=== PATIENT | female | born 1955 | race Caucasian/White ===

== ENCOUNTER 2018-04-19 09:43 | Observation (INO) ==
--- NOTE | 2018-04-19 09:45 | Emergency Department Note ---
Disposition Clinical Impression: Pneumonia Qualifiers: Pneumonia type: due to unspecified organism Laterality: right Lung location: middle lobe of lung Qualified Code(s): J18.1 - Lobar pneumonia, unspecified organism Disposition: Admitted As Inpatient Condition: Good Instructions: Upper Respiratory Infection (ED), Community-acquired Pneumonia (ED), Cold Symptoms (ED) Prescriptions: Albuterol Sulfate [Proventil Hfa] 6.7 gm IH Q4-6H PRN 7 Days #1 hfa.aer.ad PRN Reason: Shortness of breath Levofloxacin [Levaquin] 750 mg PO DAILY #7 tablet predniSONE [PredniSONE] 20 mg PO DAILY #15 tablet Promethazine/Dextromethorphan [Promethazine-Dm Syrup] 5 ml PO Q4-6H PRN #120 syrup PRN Reason: Cough Referrals: NONE,PCP [Primary Care Provider] - Time of Disposition: 11:21 General Adult HPI - General Stated complaint: SOB Sinus coughing Time Seen by Provider: 04/19/18 09:44 Source: patient Mode of arrival: private vehicle Limitations: no limitations Nursing Notes Reviewed: Yes Vital Signs Reviewed: Yes - History of Present Illness HPI Narrative: 62-year-old white female presents emergency department via private vehicle complaining of cough and cold symptoms for the last 3 days. She says that she is had sinus congestion with a headache. She denies any sore throat or earache. She has not had generalized body aches or fever. She has had a somewhat productive cough. She is been taking Mucinex and Robitussin with little to no relief. She says that she gets this "every spring." She says that the shortness of breath concerned her this morning. She feels like she just cannot take a deep breath. - Related Data Previous Rx's Medication Instructions Recorded Guaifenesin [Guaifenesin ER] 600 mg PO BID PRN #30 tab.er.12h 05/10/17 Albuterol Sulfate [Proventil Hfa] 6.7 gm IH Q4-6H PRN 7 Days #1 04/19/18 hfa.aer.ad Levofloxacin [Levaquin] 750 mg PO DAILY #7 tablet 04/19/18 Promethazine/Dextromethorphan 5 ml PO Q4-6H PRN #120 syrup 04/19/18 [Promethazine-Dm Syrup] predniSONE [PredniSONE] 20 mg PO DAILY #15 tablet 04/19/18 Allergies Allergy/AdvReac Type Severity Reaction Status Date / Time acetaminophen [From Percocet] Allergy Vomiting Verified 05/09/17 16:06 oxycodone [From Percocet] Allergy Vomiting Verified 05/09/17 16:06 All systems ED: reviewed and negative except as stated. Constitutional: Reports: as per HPI. Denies: fever, chills, weakness, weight change Eyes: Denies: eye pain, eye discharge, vision change ENT ED: Reports: as per HPI. Denies: ear pain, throat pain, dental pain, hearing loss, epistaxis, congestion, dysphagia Cardiovascular: Denies: chest pain, palpitations, dyspnea on exertion, edema, syncope Respiratory: Reports: as per HPI, cough, dyspnea, sputum production Gastrointestinal: Denies: abdominal pain, nausea, vomiting, diarrhea, constipation, hematemesis, melena, hematochezia Genitourinary: Denies: dysuria, frequency, hematuria, discharge Musculoskeletal: Denies: back pain, neck pain, arthralgia, myalgia Integumentary: Denies: rash, abrasion, lesions Neurological: Denies: headache, weakness, numbness, paresthesias, confusion, abnormal gait, vertigo Psychiatric: Denies: anxiety, depression, suicidal thoughts, homicidal thoughts, auditory hallucinations, visual hallucinations Endocrine: Denies: fatigue Hematological/Lymphatic: Denies: easy bleeding, easy bruising Allergic/Immunologic: Denies: facial swelling, urticaria Past Medical History - Past Medical History Medical history: Reports: no medical history Surgical history: Reports: cholecystectomy Psychiatric history: Reports: no psych history - Social History Smoking Status: Never smoker Smokeless Tobacco Status: No Alcohol use: Reports: none Drug use: Reports: none Physical Exam - General Limitations: no limitations General appearance: alert, in no apparent distress - Head Head exam: atraumatic, normocephalic, normal inspection - Eye Eye exam: Present: normal appearance, PERRL, EOMI - ENT ENT exam: normal exam, normal oropharynx, mucous membranes moist - Neck Neck exam: Present: normal inspection, full ROM, trachea midline. Absent: tenderness, meningismus - Chest Chest inspection: Present: normal inspection, symmetric chest wall rise - Respiratory Respiratory exam: Present: normal lung sounds bilaterally, wheezes. Absent: respiratory distress - Cardiovascular Cardiovascular exam: Present: regular rate, normal rhythm, normal heart sounds - Abdominal Exam Abdominal exam: Present: soft, Non-Tender. Absent: tenderness, distention, guarding, rebound, rigidity, organomegaly, mass - Extremities Exam Extremities exam: Present: normal inspection, full ROM. Absent: tenderness, pedal edema - Back Exam Back exam: Present: normal inspection, full ROM. Absent: tenderness - Neurological Exam Neurological exam: Present: alert, oriented X3, CN II-XII intact. Absent: motor sensory deficit - Psychiatric Psychiatric exam: Present: normal affect, normal mood - Skin Skin exam: Present: warm, dry, intact, normal color Course Course Narrative: The patient remained stable throughout her emergency department stay. She had some improvements in her symptoms following her medications. 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 She is encouraged to rest and to avoid work for se ver days. She expresses understanding and will receive IV antibiotics prior to her discharge. She is encouraged to return for any change or concern. Shortly after playing her discharge she reconsiders and will be admitted to the hospital for further care. Spoke to Dr. Dubose at 11:15 AM to arrange for admission. Vital Signs Temperature 99.4 F 04/19/18 09:53 Pulse Rate 108 04/19/18 09:53 Respiratory Rate 22 04/19/18 09:53 Blood Pressure 141/84 04/19/18 09:53 O2 Sat by Pulse Oximetry 94 04/19/18 09:53 Temperature 99.4 F 04/19/18 09:53 Pulse Rate 108 04/19/18 09:53 Respiratory Rate 18 04/19/18 10:16 Blood Pressure 141/84 04/19/18 09:53 O2 Sat by Pulse Oximetry 99 04/19/18 10:16 Oxygen Delivery Oxygen Delivery Room Air Medical Decision Making - Lab Data Lab results reviewed: Yes I reviewed the patient's lab results. Result diagrams: 04/19/18 10:38 04/19/18 10:38 Lab Results 04/19/18 04/19/18 04/19/18 Range/Units 10:38 10:38 10:38 WBC 8.2 (4.3-11.1) K/mcL RBC 4.90 (3.82-4.97) M/mcL Hgb 14.2 (11.5-15.4) g/dL Hct 43.1 (35.3-44.9) % MCV 88.0 (83.0-100.0) fL MCH 29.0 (28.0-33.3) pg MCHC 32.9 (31.6-35.5) g/dL RDW 13.2 (11.5-14.5) % Plt Count 259 (140-400) K/mcL MPV 9.9 (9.4-12.4) fL Immature Gran % 0.6 (0-4) % Seg Neutrophils % 61.7 % Lymphocytes % 24.2 % Monocytes % 13.3 % Eosinophils % 0.0 % Basophils % 0.2 % Neutrophils # 5.1 (1.6-8.9) K/mcL Lymphocytes # 2.0 (0.6-4.6) K/mcL Monocytes # 1.1 (0.0-1.3) K/mcL Eosinophils # 0.0 (0.0-0.6) K/mcL Basophils # 0.0 (0.0-0.2) K/mcL Sodium 138 (136-145) mEq/L Potassium 3.4 L (3.5-5.1) mEq/L Chloride 103 (98-107) mEq/L Carbon Dioxide 22 L (23-29) mEq/L BUN 19 (8-23) mg/dL Creatinine 0.72 (0.60-1.20) mg/dL Est GFR ( Amer) > 60 (> 60) Est GFR (Non-Af Amer) > 60 (> 60) BUN/Creatinine Ratio 26 (6-26) Glucose 126 H (70-105) mg/dL Calculated Osmolality 290 (280-300) Lactic Acid 0.8 (0.5-2.2) mmol/L Calcium 9.3 (8.6-10.3) mg/dL Total Bilirubin 0.5 (0.3-1.0) mg/dL AST 37 (13-39) Units/L ALT 54 H (7-52) Units/L Alkaline Phosphatase 92 (34-104) Units/L Serum Total Protein 8.1 (6.4-8.9) g/dL Albumin 4.4 (3.5-5.7) g/dL Globulin 3.7 H (2.4-3.5) g/dL Albumin/Globulin Ratio 1.2 (1.1-2.2) Influenza A and B are negative - Radiology Data Radiology results reviewed: Yes I reviewed the patient's radiology results. 2 views of the chest: IMPRESSION: 1. Right middle lobe infiltrate, concerning for pneumonia. Follow-up radiographs are recommended to ensure resolution. 2. Bibasilar atelectasis. D/ / 04/19/2018 10:25:43 Ariel Dominguez MD / shae
[2018-04-19] MEDS ORDERED: Ipratropium/Albuterol Neb 3 ML IH ONE (10:01)
[2018-04-19] MEDS: predniSONE 20 MG TABLET PO ONE ×2 (10:21→10:35)
[2018-04-19] MEDS ORDERED: Levofloxacin 750 MG/150 ML 750 MG/150 ML BAG IVPB ONE (10:36)
[2018-04-19] MEDS ORDERED: methylPREDNISolone 125 MG/2 ML VIAL IVP ONE (10:36)
[2018-04-19 10:49] LABS: Basophils % 0.2 %; Hematocrit 43.1 % (35.3-44.9); Hemoglobin 14.2 g/dL (11.5-15.4); Immature Granulocytes % 0.6 % (0-4); Lymphocytes % 24.2 %; Mean Corpuscular HGB Conc 32.9 g/dL (31.6-35.5); Mean Platelet Volume 9.9 fL (9.4-12.4); Monocytes # 1.1 K/mcL (0.0-1.3); Monocytes % 13.3 %; Neutrophils # 5.1 K/mcL (1.6-8.9); Platelet Count 259 K/mcL (140-400); Red Cell Distribution Width 13.2 % (11.5-14.5); Segmented Neutrophils % 61.7 %
[2018-04-19 11:02] LABS: Alanine Aminotransferase 54 Units/L (7-52); Albumin 4.4 g/dL (3.5-5.7); Albumin/Globulin Ratio 1.2 (1.1-2.2); Alkaline Phosphatase 92 Units/L (34-104); Aspartate Amino Transferase 37 Units/L (13-39); BUN/Creatinine Ratio 26 (6-26); Bilirubin,Total 0.5 mg/dL (0.3-1.0); Blood Urea Nitrogen 19 mg/dL (8-23); Calcium 9.3 mg/dL (8.6-10.3); Carbon Dioxide 22 mEq/L (23-29); Chloride 103 mEq/L (98-107); Globulin 3.7 g/dL (2.4-3.5); Glucose 126 mg/dL (70-105); Osmolality,Calculated 290 (280-300); Potassium 3.4 mEq/L (3.5-5.1); Sodium 138 mEq/L (136-145); Total Protein 8.1 g/dL (6.4-8.9); eGFR For Non-African Americans > 60 (> 60)
[2018-04-19] MEDS ORDERED: 0.9 % Sodium Chloride 1,000 ML IVC SCH (13:10)
[2018-04-19] MEDS ORDERED: Ondansetron ODT 4 MG TAB.RAPDIS SL PRN (13:10)
[2018-04-19] MEDS ORDERED: Naloxone 0.4 MG/ML INJ IVP PRN ×2 (13:10)
--- NOTE | 2018-04-19 14:22 | Internal Med History&Physical ---
Date of Encounter: 04/19/18 Time of Encounter: 14:00 Assessment and Plan (1) Pneumonia Current visit: Yes Status: Acute We will treat her with Levaquin, follow clinically. She will be given a burst of prednisone as this was begun in the emergency room. Hopefully, she should be able to go home tomorrow. Qualifiers: Pneumonia type: due to unspecified organism Laterality: right Lung location: middle lobe of lung Qualified Code(s): J18.1 - Lobar pneumonia, unspecified organism Internal Medicine - H&P: HPI Chief complaint: Cough and shortness of breath Admitted From: Home Plans for Post Hospital Care: Home History of present illness: Ms. Apodaca is a 62 year old female who was in her usual state until 3 days ago. Then she developed what seemed like an upper respiratory infection. However, she had diminished appetite, progressive worsening of dyspnea, increased cough. She had minimal yellow phlegm produced with cough. She denies fever or chills. States that her breathing is worse with any activity. She feels like she was drinking adequately, at home. She drinks mostly water and fruit juice. She denies other problems. Past medical history is unremarkable. Past surgical history is significant only for removal of a benign thyroid nodule and cholecystectomy. She has no known drug allergies even though acetaminophen and oxycodone are listed. She has glasses. She has no other ongoing medical problems or symptoms. She lives at home with her . Is a nonsmoker, nondrinker, denies recreational drug use. 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 Past Med Surg Social Fam HX - Past Medical History Medical history: no medical history Psychiatric history: no psych history - Past Surgical History Surgical History: cholecystectomy Additional surgical history: thyroid tumor removed, breast biopsy - Social History Smoking Status: Never smoker Smokeless Tobacco Status: No Alcohol use: none Drug use: none - Family History Mother Living Status: Hx Family Cardiac Disorders: No Hx Family Respiratory Disorders: No Hx Family Cancer: Yes (Colon) Hx Family GI Disorders: No Hx Family Endocrine Disorder: No Hx Family Neuromuscular Disorders: No Hx Family Neurologic Disorders: No Hx Family HEENT Disorders: No Hx Family Autoimmune Disorders: No Father Living Status: Hx Family Cardiac Disorders: Yes ([place]) Hx Family Respiratory Disorders: No Hx Family Cancer: No Hx Family GI Disorders: No Hx Family Endocrine Disorder: No Hx Family Neuromuscular Disorders: No Hx Family Neurologic Disorders: No Hx Family HEENT Disorders: No Hx Family Autoimmune Disorders: No Internal Medicine - H&P: Meds Guaifenesin [Guaifenesin ER] 600 mg PO BID PRN #30 tab.er.12h 05/10/17 [Rx] Albuterol Sulfate [Proventil Hfa] 6.7 gm IH Q4-6H PRN 7 Days #1 hfa.aer.ad 04/19/18 [Rx] Levofloxacin [Levaquin] 750 mg PO DAILY #7 tablet 04/19/18 [Rx] Promethazine/Dextromethorphan [Promethazine-Dm Syrup] 5 ml PO Q4-6H PRN #120 syrup 04/19/18 [Rx] predniSONE [PredniSONE] 20 mg PO DAILY #15 tablet 04/19/18 [Rx] Allergy/AdvReac Type Severity Reaction Status Date / Time acetaminophen [From Percocet] Allergy Vomiting Verified 05/09/17 16:06 oxycodone [From Percocet] Allergy Vomiting Verified 05/09/17 16:06 Review of systems: Patient has no complaint of chest discomfort, dyspnea, orthopnea, breathing problems, palpitations, nausea or vomiting, constipation or diarrhea, other changes in bowel habits, heartburn, difficulty with urination, kidney problems or kidney stones, fevers chills or sweats, rash or itching, seizures, headache or lightheadedness, heat or cold intolerance, blood problems or anemia, or other new complaints, except as mentioned above. Review of systems is otherwise negative. - Constitutional Vitals: Temp Pulse Resp BP Pulse Ox 99.4 F 94 18 126/77 93 04/19/18 09:53 04/19/18 11:22 04/19/18 10:16 04/19/18 11:22 04/19/18 11:22 Exam: Examination: (Except as mentioned above): General: In no apparent distress, alert and oriented 3. Head: Atraumatic and normocephalic. Eyes: Extraocular muscles are intact, pupils equal round and reactive to light and accommodation. Sclerae anicteric. Ears: External ears are normal to inspection and hearing is grossly normal. Nose: Patent without lesion noted. Mouth: No intraoral lesions seen. Dentition is unremarkable. Neck: Supple with trachea midline. There is no thyromegaly or adenopathy and carotids are 2+ without bruit heard. Respiratory: No use of accessory muscles. She has a few right basilar rales, some egophony at the right base and midlung. Normal airflow. Cardiovascular: Regular rate and rhythm without murmur appreciated. Abdomen: Bowel sounds are normal. No hepatosplenomegaly masses or tenderness. Obese and therefore difficult to palpate deeply. Extremities: No cyanosis clubbing or edema. Neurological: A and O 3. Cranial nerves II through XII are intact. No focal deficits and no abnormal movements or postures. Skin: Warm and non-diaphoretic with no lesions noted. Breasts, pelvic and rectal: Not examined. Internal Med - H&P Results - Labs CBC & Chem 7: 04/19/18 10:38 04/19/18 10:38 Labs: Short CBC 04/19/18 Range/Units 10:38 WBC 8.2 (4.3-11.1) K/mcL Hgb 14.2 (11.5-15.4) g/dL Hct 43.1 (35.3-44.9) % Plt Count 259 (140-400) K/mcL Neutrophils # 5.1 (1.6-8.9) K/mcL BMP 04/19/18 10:38 Sodium 138 Potassium 3.4 L Chloride 103 Carbon Dioxide 22 L BUN 19 Creatinine 0.72 Glucose 126 H Calcium 9.3 Liver Function 04/19/18 Range/Units 10:38 Total Bilirubin 0.5 (0.3-1.0) mg/dL AST 37 (13-39) Units/L ALT 54 H (7-52) Units/L Alkaline Phosphatase 92 (34-104) Units/L Albumin 4.4 (3.5-5.7) g/dL - Impressions ITS Impressions Chest X-Ray 04/19/18 10:00 IMPRESSION: 1. Right middle lobe infiltrate, concerning for pneumonia. Follow-up radiographs are recommended to ensure resolution. 2. Bibasilar atelectasis. D/ / 04/19/2018 10:25:43 Ariel Dominguez MD / shae Interpreting Provider: Ariel Dominguez MD
[2018-04-19] MEDS: 0.9 % Sodium Chloride 1,000 ML IVC SCH (14:49)
[2018-04-20] MEDS: 0.9 % Sodium Chloride 1,000 ML IVC SCH (02:46)
[2018-04-20 07:40] VITALS: BP 122/72
[2018-04-20] MEDS ORDERED: Levofloxacin 500 MG/100 ML 500 MG/100 ML BAG IVPB SCH (09:00)
[2018-04-20] MEDS ORDERED: predniSONE 20 MG TABLET PO SCH (09:00)
--- NOTE | 2018-04-20 11:53 | Discharge Summary ---
Addendum entered and electronically signed by Tommy Dubose MD 04/20/18 14:05: I have personally performed a face to face evaluation on this patient. I have r eviewed and agree with the care plan. History and Exam by me shows: Patient is still slightly short of breath but is not coughing as much and is feeling generally better. She feels like she can go home. There is been no change in phlegm production. Discussed care with other providers and/or nursing. Patient has no complaint of chest discomfort, dyspnea, orthopnea, palpitations, nausea or vomiting, constipation or diarrhea, other changes in bowel habits, difficulty with urination, rash or itching, or other new complaints, except as mentioned above. Review of systems is otherwise negative. Examination: (Except as mentioned above): General: In no apparent distress. Alert and oriented 3. Nondiaphoretic. Head: Atraumatic and normocephalic. Respiratory: No use of accessory muscles. Lungs are clear throughout. She no longer has rales or rhonchi, no egophony or fremitus. Normal airflow. Cardiovascular: Regular rate and rhythm without murmur appreciated. Abdomen: Bowel sounds are normal. No hepatosplenomegaly mass or tenderness appreciated. Obese and therefore difficult to palpate deeply. Extremities: No cyanosis clubbing or edema. Skin: Warm and non-diaphoretic with no new lesions noted. Advised that she take Levaquin daily for a week, prednisone for 5 days in a burst pattern to 40 mg daily, and an inhaler for a couple of days regularly and then after that as needed. She is to follow-up with her primary care physician in 5-7 days. Original Note: Orders not resulted at time of discharge: Pending orders 04/19/18 10:50 Culture,Blood [] Stat Date of Encounter: 04/20/18 Time of Encounter: 11:51 - Discharge Diagnosis (1) Pneumonia Priority: Primary Status: Acute Comments: improving. maintaining O2 sats > 92% on RA. continue levaquin and mucinex. f/u with PCP. return to ER if fever returns or breathing worsens. Qualifiers: Pneumonia type: due to unspecified organism Laterality: right Lung location: middle lobe of lung Qualified Code(s): J18.1 - Lobar pneumonia, unspecified organism Hospital course: Ms. Apodaca is a 62 year old female discharging to home after being admitted for observation with pneumonia. Patient will continue on Levaquin by mouth for 7 days and prednisone for 5 days. Patient denies any shortness of breath or wheezing. Maintaining O2 sats greater than 92% on room air. Denies fever, chills, nausea vomiting or diarrhea. States she continues to have a cough which is slightly productive at times. Maintaining appetite and hydration. Lives at home with . Sister present during exam. Discharge discussed with: patient, family, nurse, social work - Time Spent with Patient Total time spent providing and/or coordinating discharge services: Time spent: Less than 30 minutes - Discharge Medications Prescriptions: New Levofloxacin [Levaquin] 750 mg PO DAILY #7 tablet predniSONE [PredniSONE] 20 mg PO DAILY #15 tablet Promethazine/Dextromethorphan [Promethazine-Dm Syrup] 5 ml PO Q4-6H PRN #120 syrup PRN Reason: Cough Albuterol Sulfate [Proventil Hfa] 6.7 gm IH Q4-6H PRN 7 Days #1 hfa.aer.ad PRN Reason: Shortness of breath No Action Guaifenesin [Guaifenesin ER] 600 mg PO BID PRN #30 tab.er.12h PRN Reason: Cough Home Medications: Guaifenesin [Guaifenesin ER] 600 mg PO BID PRN #30 tab.er.12h 05/10/17 [Rx] Albuterol Sulfate [Proventil Hfa] 6.7 gm IH Q4-6H PRN 7 Days #1 hfa.aer.ad 04/19/18 [Rx] Levofloxacin [Levaquin] 750 mg PO DAILY #7 tablet 04/19/18 [Rx] predniSONE [PredniSONE] 40 mg PO DAILY 5 Days #10 tablet 04/20/18 [Rx] Allergies/Adverse Reactions: Allergy/AdvReac Type Severity Reaction Status Date / Time codeine AdvReac Nausea Verified 04/20/18 07:19 oxycodone AdvReac Nausea Verified 04/20/18 07:19 Date of admission: 04/19/18 11:59 Primary care physician: PCP NONE Discharging clinician: Tommy Dubose Anticipated date of discharge: 04/20/18 - Constitutional Vitals: Temp Pulse Resp BP Pulse Ox 97.9 F 70 16 122/72 93 04/20/18 07:35 04/20/18 07:35 04/20/18 07:35 04/20/18 07:35 04/20/18 07:35 General appearance: Present: cooperative, A&O X 3, pleasant, no acute distress, answers questions appropriately - Head Head exam: Present: atraumatic, normocephalic - Eye Eye exam: Present: PERRL, conjuntiva pink, sclera anicteric Pupils: Present: PERRL - Neck Neck exam general surgery: Present: supple, trachea midline. Absent: lymphadenopathy - Respiratory Respiratory exam: Absent: accessory muscle use, rales, rhonchi, wheezes Additional comments: Right lower lobe fine crackles. Clear throughout rest of lung pollard. - Cardiovascular Cardiovascular exam: Present: RRR, +S1, +S2. Absent: diastolic murmur, gallop, rubs, systolic murmur - GI/Abdominal GI/Abdominal exam: Present: normal bowel sounds, soft, no peritoneal signs. Absent: distended, tenderness - Extremities Exam Extremities exam: Present: warm, radial pulses palpable and symmetrical. Absent: calf tenderness, cyanotic, pedal edema - Neurological Exam Neurological exam: Present: CN II-XII intact, oriented X3, no focal deficits. Absent: pronater drift, facial droop, speech deficit - Skin Skin exam: Present: dry, intact - Patient Status Disposition: Home, Self-Care Condition: Good Functional capacity at discharge: independent ambulation Overall status at discharge: patient is progressing back to baseline - Discharge Instructions Forms: ED Satisfaction Letter - Diet and Activity Activity: increase activity as tolerated Diet: advance to your usual diet
== END 2018-04-20 15:16 | disposition home or self-care (01) ==
LOC: EMEROOGRE 09:43 → INPGRE 09:43